=== PATIENT | male | born 1985 | race Caucasian/White ===

== ENCOUNTER 2024-01-08 08:08 | Day surgery (SDC) | payer OTHER ==
[2024-01-08 08:35] VITALS: TEMP 97.1
[2024-01-08] MEDS: LACTATED RINGERS 1,000 ML IV SCH (08:42)
[2024-01-08] MEDS: IV FLUID CONTINUATION 1,000 ML IV ONE (08:43)
[2024-01-08] MEDS ORDERED: PROPOFOL 10 MG/ML 20 ML VIAL IV ONE (09:04)
--- NOTE | 2024-01-08 09:16 | P.PCN ---
Date of Procedure: 01/08/24 Procedure(s) Performed: BRIEF HISTORY: Patient is a 38-year-old pleasant white male scheduled for an elective colonoscopy as a part of screening for colon cancer. He does have longstanding history of ulcerative colitis diagnosed at age 19. Presently on no maintenance medications. He has been having 2-3 bowel movements daily with occasional blood or mucus in the stool. Denies any abdominal pain. In the past he was treated with Entyvio for 2 years but he stopped it in 2021 because of insurance reasons. PROCEDURE PERFORMED: Colonoscopy with biopsy. PREOPERATIVE DIAGNOSIS: Screening for colon cancer/history of ulcerative colitis. IV sedation per Anesthesia. PROCEDURE: After informed consent was obtained, the patient, was brought into the endoscopy unit. IV sedation was administered by Anesthesia under continuous monitoring. Digital rectal examination was normal. Initially the Olympus CF-160 flexible video colonoscope was then inserted in the rectum, gradually advanced into the cecum without any difficulty. Careful examination was performed as the scope was gradually being withdrawn. Ileocecal valve and the appendiceal orifice were visualized and appeared normal. Prep was excellent. Mucosa of the cecum, ascending colon, transverse colon, descending colon, sigmoid colon, and rectum and mild diffuse erythema, friability and spontaneous oozing consistent with mildly active ulcerative colitis. Random biopsies were done from the cecum to rectum at every 10 cm intervals. Retroflexion was performed in the rectum and no lesions were seen. The patient tolerated the procedure well. IMPRESSION: Mild diffuse active colitis involving the entire colon with mucosal erythema, friability and spontaneous oozing, status post multiple biopsies RECOMMENDATIONS: Findings of this examination were discussed with the patient as well as his family. He was advised to follow with the biopsy results.. If the biopsy does not show any evidence of dysplasia, he can have repeat colonoscopy in 2 years. In the meantime he will be started on oral mesalamine 4.8 g daily and he will be seen in the office in 6 weeks.
[2024-01-08 09:20] VITALS: RESP 16
[2024-01-08 10:11] VITALS: BP 117/74; PULSE 62
== END 2024-01-08 10:18 | disposition home or self-care (01) ==
LOC: ORWHC2ENDO 08:08
PROVIDERS: ATTEND Internal Medicine Gastroenterology
DX: K51.90 Ulcerative colitis, unspecified, without complications
CPT/HCPCS: 45380; 88305